=== PATIENT | female | born 1945 | race Hispanic/Latino ===

== ENCOUNTER 2018-04-01 14:41 | Outpatient (CLI) | payer MEDICARE ==
--- NOTE | 2018-04-01 15:12 | RAD ---
CERVICAL SPINE 3 VIEWS: HISTORY: A 72-year-old female with a history of followup surgery. COMPARISON: 02/19/17. FINDINGS: Anterior cervical fusion changes at C5-C6. Extensive hypertrophic osteophytosis and facet arthrosis. No malalignment. Stable from prior study. IMPRESSION: Stable anterolisthesis at C5-C6. Generalized spondylosis. No new process. POS: C
== END 2018-04-01 14:42 | disposition home or self-care (01) ==
LOC: TBSIIMAG 14:41
PROVIDERS: ATTEND Surgery
DX: M50.30 Other cervical disc degeneration, unspecified cervical region (principal); M43.12 Spondylolisthesis, cervical region; M47.892 Other spondylosis, cervical region
CPT/HCPCS: 72040